=== PATIENT | female | born 1960 | race American Indian/Alaskan Native ===

== ENCOUNTER 2016-03-23 23:14 | Emergency (ER) | payer MEDICAID ==
[2016-03-24 01:27] LABS: Hematocrit 33.4 % (30.3-42.9); Hemoglobin 11.4 gm/dl (10.1-14.3); Mean Corpuscular HGB Conc 34 % (30-34); Mean Corpuscular Hemoglobin 31 pg (28-32); Mean Corpuscular Volume 91 fl (79-97); Platelet Count 227 K/mm3 (140-440); Red Blood Count 3.69 M/mm3 (3.65-5.03); Red Cell Distribution Width 13.6 % (13.2-15.2); White Blood Count 6.8 K/mm3 (4.5-11.0)
[2016-03-24 01:44] LABS: BUN/Creatinine Ratio 16.66; Blood Urea Nitrogen 10 mg/dL (7-17); Calcium 8.4 mg/dL (8.4-10.2); Carbon Dioxide 30 mmol/L (22-30); Chloride 97.3 mmol/L (98-107); Glucose 83 mg/dL (65-100); Potassium 3.6 mmol/L (3.6-5.0); Sodium 137 mmol/L (137-145)
[2016-03-24 01:45] LABS: Anion Gap 13 mmol/L
[2016-03-24 03:39] LABS: Basophils % (Manual) 0 % (0.0-1.8); Blastocytes % (Manual) 0 %
[2016-03-24 03:40] LABS: Anisocytosis 1+; Diff Status Complete
[2016-03-24] MEDS ORDERED: TYLENOL PO ONE (06:25)
--- NOTE | 2016-03-24 11:15 | Emergency Department Report ---
HPI - General Chief Complaint: Syncope Time Seen by Provider: 03/24/16 11:03 - HPI HPI: Chief complaint: Recurrent syncope and recurrent headache HPI: Patient is a 55-year-old female with a history of previous CVA, migraine headaches, HIV, seizure disorder, hypertension who presents today stating that she thinks she may be passing out at night. Patient states she takes her medicine at night and then sometime during the night when she is sitting on the side of the bed watching TV she thinks she might be passing out. Patient is unclear she's having a seizure but there is no incontinence or tongue biting. States she takes Tylenol for her headaches. It is her typical migraine headache for which she is had a workup in the past. Patient was here a year ago and had a CVA at that time and was transferred to [place] for her stroke. Patient states she is taking all of her medications as prescribed and has never had an age-related infection. Patient does not know her T cell count. Mode of arrival: EMS Source: Patient and old chart Began: Patient states she's been having these episodes nightly for a week. Duration: Unclear Context: See above Quality: Migraine Severity: 7 out of 10 Improved with: Improved in the ED after being given Tylenol Worsened with: Nothing Associated signs and symptoms: One episode of emesis this morning. No fever, cough, cold, chest pain, shortness breath or abdominal pain. ED Past Medical Hx - Past Medical History Hx Hypertension: Yes Hx CVA: Yes (2005) Hx Seizures: Yes - Social History Smoking Status: Never Smoker Substance Use Type: None - Medications Home Medications: Home Medications Medication Instructions Recorded Confirmed Last Taken Type ALBUTEROL Inhaler [Proair] 2 puff IH QID PRN 03/14/15 03/24/16 03/14/15 History Acyclovir [Zovirax Cap] 200 mg PO Q4H 03/14/15 03/24/16 03/13/15 History Aspirin [Aspirin BABY CHEW TAB] 81 mg PO QDAY 03/14/15 03/24/16 03/14/15 History Hydrochlorothiazide [HCTZ] 25 mg PO QDAY 03/14/15 03/24/16 03/13/15 History Ibuprofen [Motrin] 800 mg PO Q8HR PRN 03/14/15 03/24/16 03/14/15 History Phenytoin Sodium Extended 100 mg PO DAILY 03/14/15 03/24/16 03/13/15 History Quetiapine Fumarate [QUEtiapine 400 mg PO QHS 03/14/15 03/24/16 03/13/15 History Fumarate] amLODIPine [Norvasc] 10 mg PO DAILY 03/14/15 03/24/16 03/13/15 History ED Review of Systems ROS: Stated complaint: POSS SYNCOPE Other details as noted in HPI ROS Constitutional: No fever ENT: No uri symptoms Cardiovascular: No chest pain Respiratory: No sob or cough GI: No diarrhea : No dysuria frequency or urgency, Skin: No rash Neuro: No focal weakness or numbness Psych: No depression Bryan/lymph: No edema Physical Exam - Physical Exam Vital Signs: Vital Signs 03/24/16 03/24/16 03/24/16 00:43 06:22 06:37 Temperature 98.0 F 97.9 F Pulse Rate 67 64 Respiratory 18 18 20 Rate Blood Pressure 152/78 170/79 O2 Sat by Pulse 100 99 Oximetry 03/24/16 03/24/16 03/24/16 10:44 10:45 10:46 Temperature Pulse Rate 54 L 50 L Respiratory 22 22 24 Rate Blood Pressure 159/84 O2 Sat by Pulse 100 100 100 Oximetry Physical Exam: GENERAL: The patient is well-developed well-nourished . HEENT: Normocephalic. Atraumatic. Extraocular motions are intact. Patient has moist mucous membranes. NECK: Supple. No meningitic signs are noted. There is no adenopathy noted. CHEST/LUNGS: Clear to auscultation. There is no respiratory distress noted. HEART/CARDIOVASCULAR: Regular. There is no tachycardia. There is no gallop rub or murmur. ABDOMEN: Abdomen is soft, nontender. Patient has normal bowel sounds. There is no abdominal distention. SKIN: There is no rash. There is no edema. There is no diaphoresis. NEURO: The patient is awake, alert, and oriented. The patient is cooperative. The patient has no focal neurologic deficits. The patient has normal speech. MUSCULOSKELETAL: There is no tenderness or deformity. There is no limitation range of motion. There is no evidence of acute injury. ED Course Vital Signs 03/24/16 03/24/16 03/24/16 00:43 06:22 06:37 Temperature 98.0 F 97.9 F Pulse Rate 67 64 Respiratory 18 18 20 Rate Blood Pressure 152/78 170/79 O2 Sat by Pulse 100 99 Oximetry 03/24/16 03/24/16 03/24/16 10:44 10:45 10:46 Temperature Pulse Rate 54 L 50 L Respiratory 22 22 24 Rate Blood Pressure 159/84 O2 Sat by Pulse 100 100 100 Oximetry - Reevaluation(s) Reevaluation #1: 03/24/16 13:31 Daughter is here and states that patient has petit mal seizures. She states that her mother would call her after these episodes usually she never left the bed. Last night however she fell and that's when her daughter recommended she come to the hospital. Reevaluation #2: 03/24/16 13:46 Patient took her Dilantin this morning she takes 100 mg 3 times a day. As her level is slightly low give her 200 mg now and have her go back to her 100mg 3 times a day. ED Medical Decision Making - Lab Data Result diagrams: 03/24/16 01:16 03/24/16 01:16 Laboratory Tests 03/24/16 03/24/16 03/24/16 01:16 03:30 07:07 Troponin T < 0.010 < 0.010 < 0.010 Laboratory Tests 03/24/16 11:28 Phenytoin 4.6 L - EKG Data -: EKG Interpreted by Me EKG shows normal: sinus rhythm (first-degree AV block) Rate: normal (64) - EKG Data When compared to previous EKG there are: no significant change Interpretation: nonspecific ST-T wave michael - Radiology Data Radiology results: report reviewed (CT of the head shows no acute process.) Critical care attestation.: If time is entered above; I have spent that time in minutes in the direct care of this critically ill patient, excluding procedure time. ED Disposition Clinical Impression: Petit mal without grand mal seizures Disposition: DISCHARGED TO HOME OR SELFCARE Is pt being admited?: No Does the pt Need Aspirin: No Condition: Stable Instructions: Epilepsy (ED) Referrals: PRIMARY CARE, [Primary Care Provider] - 3-5 Days GUNJAN ARZATE MD [Staff Physician] - 3-5 Days (Dr. Arzate is a neurologist.) Time of Disposition: 13:39
[2016-03-24] MEDS ORDERED: NACL 0.9% 1000 ML IV ONE (11:19)
--- NOTE | 2016-03-24 12:01 | Cat Scan Report ---
CT scan of head with contrast: Compare to 03/14/15. History: Headache. Findings: Ventricles are normal in size and midline in location. Focal ill-defined area of low attenuation right parieto-occipital region. No interval change. No evidence of acute ischemia or hemorrhage. No extra-axial fluid collection. Normal brainstem and cerebellum. Normal sinuses and mastoid air cells. Impression: Focal area of low attenuation in the right parieto-occipital region probably chronic ischemia. Unchanged compared to previous study. No evidence of acute abnormality.
[2016-03-24] MEDS ORDERED: DILANTIN ONE (13:42)
[2016-03-24 14:11] VITALS: BP 167/86
[2016-03-24] MEDS ORDERED: DILANTIN PO ONE (14:57)
== END 2016-03-24 14:19 | disposition home or self-care (01) ==
LOC: ED 23:14
DX: G40.409 Other generalized epilepsy and epileptic syndromes, not intractable, without status epilepticus (principal); I10 Essential (primary) hypertension; G43.909 Migraine, unspecified, not intractable, without status migrainosus; Z86.73 Personal history of transient ischemic attack (TIA), and cerebral infarction without residual deficits
CPT/HCPCS: 36415; 70450; 80048; 80185; 84484; 85007; 85025; 93005; 93010; 96360; 96361; 99285; J7030

== ENCOUNTER 2017-12-01 16:54 | Emergency (ER) | payer MEDICAID ==
[2017-12-01] MEDS ORDERED: APRESOLINE PO ONE (17:28)
[2017-12-01 19:15] LABS: Basophils % (Auto) 0.3 % (0.0-1.8); Eosinophils # (Auto) 0.3 K/mm3 (0.0-0.4); Eosinophils % (Auto) 4.9 % (0.0-4.3); Hemoglobin 13.1 gm/dl (10.1-14.3); Lymphocytes # (Auto) 2.3 K/mm3 (1.2-5.4); Lymphocytes % (Auto) 42.6 % (13.4-35.0); Mean Corpuscular HGB Conc 34 % (30-34); Mean Corpuscular Hemoglobin 31 pg (28-32); Mean Corpuscular Volume 92 fl (79-97); Monocytes # (Auto) 0.4 K/mm3 (0.0-0.8); Monocytes % (Auto) 8.2 % (0.0-7.3); Platelet Count 223 K/mm3 (140-440); Red Blood Count 4.25 M/mm3 (3.65-5.03); Red Cell Distribution Width 14.6 % (13.2-15.2)
[2017-12-01] MEDS ORDERED: FIORICET PO ONE (20:52)
--- NOTE | 2017-12-01 21:17 | Emergency Department Report ---
HPI - General Chief Complaint: Fall Time Seen by Provider: 12/01/17 20:01 - HPI HPI: Room 19 The patient is a 57-year-old female presenting with a chief complaint of pain after fall. The patient states earlier today she was walking upstairs when she fell injuring her right leg and the right side of her face. Patient denies loss of consciousness. Patient gives her pain a score of 10/10 Location: [See above] Duration: Constant since earlier today Quality: Pain Severity: 10/10 Modifying factors: [see above] Context: [see above] Mode of transportation: [not driving] ED Past Medical Hx - Past Medical History Hx Hypertension: Yes Hx CVA: Yes (2005) Hx Seizures: Yes Hx HIV: Yes - Surgical History Past Surgical History?: No - Family History Family history: no significant - Social History Smoking Status: Never Smoker Substance Use Type: None (denies illicit drug use) - Medications Home Medications: Home Medications Medication Instructions Recorded Confirmed Last Taken Type ALBUTEROL Inhaler (OR & NICU) 2 puff IH QID PRN 03/14/15 03/24/16 03/14/15 History [Proair] Acyclovir [Zovirax Cap] 200 mg PO Q4H 03/14/15 03/24/16 03/13/15 History Aspirin [Aspirin BABY CHEW TAB] 81 mg PO QDAY 03/14/15 03/24/16 03/14/15 History Ibuprofen [Motrin] 800 mg PO Q8HR PRN 03/14/15 03/24/16 03/14/15 History Phenytoin Sodium Extended 100 mg PO DAILY 03/14/15 03/24/16 03/13/15 History Quetiapine Fumarate [QUEtiapine 400 mg PO QHS 03/14/15 03/24/16 03/13/15 History Fumarate] amLODIPine [Norvasc] 10 mg PO DAILY 03/14/15 03/24/16 03/13/15 History hydroCHLOROthiazide [HCTZ] 25 mg PO QDAY 03/14/15 03/24/16 03/13/15 History Cyclobenzaprine [Flexeril] 10 mg PO TID PRN #14 tablet 12/01/17 Unknown Rx Ibuprofen [Motrin 800 MG tab] 800 mg PO Q8HR PRN #20 tablet 12/01/17 Unknown Rx hydroCHLOROthiazide [HCTZ] 25 mg PO QDAY #90 tablet 12/01/17 Unknown Rx ED Review of Systems ROS: Stated complaint: FELL AT BANK Other details as noted in HPI Constitutional: no symptoms reported Eyes: denies: eye pain ENT: denies: throat pain Respiratory: no symptoms reported Cardiovascular: denies: chest pain Endocrine: no symptoms reported Gastrointestinal: denies: abdominal pain Genitourinary: denies: dysuria Musculoskeletal: back pain, arthralgia, myalgia Neurological: headache Physical Exam - Physical Exam Vital Signs: Vital Signs 12/01/17 12/01/17 12/01/17 17:10 17:34 19:54 Temperature 98.5 F 98.5 F Pulse Rate 84 84 67 Respiratory 16 16 Rate Blood Pressure 225/111 225/111 Blood Pressure 181/80 [Left] O2 Sat by Pulse 99 96 Oximetry 12/01/17 12/01/17 12/01/17 19:55 20:31 21:01 Temperature Pulse Rate 67 Respiratory 16 15 16 Rate Blood Pressure 157/79 Blood Pressure [Left] O2 Sat by Pulse 96 100 Oximetry Physical Exam: GENERAL: The patient is well-developed well-nourished female lying on stretcher not appearing to be in acute distress. [] HEENT: Normocephalic. Atraumatic. Extraocular motions are intact. Patient has moist mucous membranes. NECK: Supple. Mild tenderness to palpation to the posterior neck at the level of C7 CHEST/LUNGS: Clear to auscultation. There is no respiratory distress noted. HEART/CARDIOVASCULAR: Regular. There is no tachycardia. There is no gallop rub or murmur. ABDOMEN: Abdomen is soft, nontender. Patient has normal bowel sounds. There is no abdominal distention. SKIN: There is no rash. There is no edema. There is no diaphoresis. NEURO: The patient is awake, alert, and oriented. The patient is cooperative. The patient has normal speech MUSCULOSKELETAL: There is tenderness to palpation of the right femur, tib-fib and foot. There is no evidence of acute injury. ED Course Vital Signs 12/01/17 12/01/17 12/01/17 17:10 17:34 19:54 Temperature 98.5 F 98.5 F Pulse Rate 84 84 67 Respiratory 16 16 Rate Blood Pressure 225/111 225/111 Blood Pressure 181/80 [Left] O2 Sat by Pulse 99 96 Oximetry 12/01/17 12/01/17 12/01/17 19:55 20:31 21:01 Temperature Pulse Rate 67 Respiratory 16 15 16 Rate Blood Pressure 157/79 Blood Pressure [Left] O2 Sat by Pulse 96 100 Oximetry ED Medical Decision Making - Lab Data Result diagrams: 12/01/17 18:03 - Radiology Data Radiology results: report reviewed (CT head, CT cervical spine, right femur x- ray, right foot x-ray, right tib-fib x-ray, lumbar spine x-ray), image reviewed (CT head, CT cervical spine, right femur x-ray, right foot x-ray, right tib-fib x-ray, lumbar spine x-ray) interpreted by me: right femur x-ray-no acute fractures right foot x-ray-no acute fractures right tib-fib x-ray-no acute fractures lumbar spine x-ray-no acute fractures [address] [address] Cat Scan Report Signed Patient: BERTHA DIAZ MR#: [id number] : Acct:[id number] Age/Sex: 57 / F ADM Date: 12/01/17 Loc: ED Attending Dr: Ordering Physician: JV LEONG MD Date of Service: 12/01/17 Procedure(s): CT cervical spine wo con Accession Number(s): [id number] cc: JV LEONG MD FINAL REPORT EXAM: CT CERVICAL SPINE WO CON HISTORY: pain after fall TECHNIQUE: CT cervical spine without contrast Comparison: None FINDINGS: There is straightening of the normal lordotic curve of the cervical spine. The vertebral heights and disc spaces are maintained. Visualization detail the contents of the cervical canal is limited by artifact. There is no evidence of fracture or subluxation. The paraspinous soft tissues are unremarkable. IMPRESSION: 1. No evidence of fracture or subluxation of the cervical spine. Transcribed By: ED Dictated By: SOLOMON CARDOSO MD Electronically Authenticated By: SOLOMON CARDOSO MD Signed Date/Time: 12/01/172222 DD/ 22 TD/TT: 12/01/172222 [address] [address] Cat Scan Report Signed Patient: BERTHA DIAZ MR#: [id number] : Acct:[id number] Age/Sex: 57 / F ADM Date: 12/01/17 Loc: ED Attending Dr: Ordering Physician: JV LEONG MD Date of Service: 12/01/17 Procedure(s): CT head/brain wo con Accession Number(s): [id number] cc: JV LEONG MD FINAL REPORT EXAM: CT HEAD/BRAIN WO CON HISTORY: pain after fall TECHNIQUE: 2.5 millimeter axial images from the skullbase to the vertex. Comparison: Head CT dated March 14, 2015 FINDINGS: There is no evidence of an acute intracranial process, intracranial hemorrhage or mass effect. There is encephalomalacia, probable chronic cortical infarct, in the right parietal lobe similar in appearance to the previous study. Ventricular size is concordant with the degree of atrophy. The visualized portions of the orbits, paranasal and mastoid sinuses are unremarkable. There is no evidence of fracture. IMPRESSION: 1. No evidence of an acute intracranial process, intracranial hemorrhage or mass effect. No significant change since previous study dated March 14, 2015. 2. No evidence of fracture. Transcribed By: ED Dictated By: SOLOMON CARDOSO MD Electronically Authenticated By: SOLOMON CARDOSO MD Signed Date/Time: 12/01/172218 DD/ 18 TD/TT: 12/01/172218 - Differential Diagnosis closed head injury, ICH, fibular fracture, foot contusion Critical care attestation.: If time is entered above; I have spent that time in minutes in the direct care of this critically ill patient, excluding procedure time. ED Disposition Clinical Impression: Closed head injury, Contusion of right foot, Acute cervical myofascial strain, Contusion of right lower extremity Disposition: TO HOME OR SELFCARE Is pt being admited?: No Does the pt Need Aspirin: No Condition: Stable Instructions: Muscle Strain (ED) Additional Instructions: Return to the emergency department immediately should you develop worsening symptoms, fever, inability to tolerate food or liquid or any other concerns. Prescriptions: Cyclobenzaprine [Flexeril] 10 mg PO TID PRN #14 tablet PRN Reason: Muscle Spasm hydroCHLOROthiazide [HCTZ] 25 mg PO QDAY #90 tablet Ibuprofen [Motrin 800 MG tab] 800 mg PO Q8HR PRN #20 tablet PRN Reason: Pain, Moderate (4-6) Referrals: [facility] [Outside] - 3-5 Days SEAN ANTONIO MD [Staff Physician] - 3-5 Days (Dr. Antonio is an orthopedic surgeon. Please follow-up with him for further evaluation if your pain persists) JAMAL HILL MD [Staff Physician] - 3-5 Days (Dr. Hill is a primary physician. Please follow up with him to be established as a patient) Time of Disposition: 22:49
--- NOTE | 2017-12-01 22:20 | Cat Scan Report ---
FINAL REPORT EXAM: CT HEAD/BRAIN WO CON HISTORY: pain after fall TECHNIQUE: 2.5 millimeter axial images from the skullbase to the vertex. Comparison: Head CT dated March 14, 2015 FINDINGS: There is no evidence of an acute intracranial process, intracranial hemorrhage or mass effect. There is encephalomalacia, probable chronic cortical infarct, in the right parietal lobe similar in appearance to the previous study. Ventricular size is concordant with the degree of atrophy. The visualized portions of the orbits, paranasal and mastoid sinuses are unremarkable. There is no evidence of fracture. IMPRESSION: 1. No evidence of an acute intracranial process, intracranial hemorrhage or mass effect. No significant change since previous study dated March 14, 2015. 2. No evidence of fracture.
--- NOTE | 2017-12-01 22:25 | Cat Scan Report ---
FINAL REPORT EXAM: CT CERVICAL SPINE WO CON HISTORY: pain after fall TECHNIQUE: CT cervical spine without contrast Comparison: None FINDINGS: There is straightening of the normal lordotic curve of the cervical spine. The vertebral heights and disc spaces are maintained. Visualization detail the contents of the cervical canal is limited by artifact. There is no evidence of fracture or subluxation. The paraspinous soft tissues are unremarkable. IMPRESSION: 1. No evidence of fracture or subluxation of the cervical spine.
--- NOTE | 2017-12-01 22:46 | XRay Report ---
FINAL REPORT EXAM: XR SPINE LUMBOSACRAL 2-3V HISTORY: pain after fall TECHNIQUE: Frontal and lateral views lumbar spine and coned-down lateral view lumbosacral junction Comparison: None FINDINGS: Bony alignment is normal. The vertebral heights are maintained. There is loss of height of the L4-L5 and L5-S1 discs. There is degenerative facet change in the lower lumbar spine. There is no evidence of fracture or subluxation. The paraspinous soft tissues are unremarkable. IMPRESSION: 1. No plain film evidence of fracture or subluxation. However, lumbar spine fractures can be missed with plain film imaging. If there is a clinical concern for fracture, CT imaging would be helpful. 2. Spondylitic change lower lumbar spine with evidence of degenerative disc and degenerative facet change.
--- NOTE | 2017-12-01 22:48 | XRay Report ---
FINAL REPORT EXAM: XR FEMUR 2+V RT HISTORY: pain after fall TECHNIQUE: Frontal and lateral views right femur Comparison: None FINDINGS: There is no evidence of fracture or subluxation. The hip joint appears to be maintained. There is evidence of degenerative change of the tibiofemoral and patellofemoral joints. The soft tissues are unremarkable. IMPRESSION: 1. No evidence of fracture or subluxation. 2. Degenerative joint change of the tibiofemoral and patellofemoral joints.
[2017-12-01] MEDS ORDERED: CATAPRES PO ONE (22:50)
--- NOTE | 2017-12-01 22:51 | XRay Report ---
FINAL REPORT EXAM: XR FOOT 3+V RT HISTORY: pain after fall TECHNIQUE: Frontal, lateral, oblique views right foot Comparison: None FINDINGS: There is no evidence of fracture or subluxation. There is evidence of degenerative change of the great toe metatarsophalangeal joint with joint space loss. There are dorsal and plantar calcaneal spurs. The soft tissues are unremarkable. IMPRESSION: 1. No evidence of fracture or subluxation. 2. Degenerative change great toe metatarsophalangeal joint. 3. Dorsal and plantar calcaneal spurs.
--- NOTE | 2017-12-01 22:52 | XRay Report ---
FINAL REPORT EXAM: XR TIBIA FIBULA 2V RT HISTORY: pain after fall TECHNIQUE: Frontal and lateral views right tibia and fibula Comparison: X-ray right femur also performed today FINDINGS: There is no evidence of fracture or subluxation. There is evidence of degenerative change of the tibiofemoral and patellofemoral joints. The soft tissues are unremarkable. IMPRESSION: 1. No evidence of fracture or subluxation.
[2017-12-02 00:01] VITALS: BP 159/83
== END 2017-12-02 00:57 | disposition home or self-care (01) ==
LOC: ED 16:54
DX: S16.1XXA Strain of muscle, fascia and tendon at neck level, initial encounter (principal); S90.31XA Contusion of right foot, initial encounter; S70.11XA Contusion of right thigh, initial encounter; S09.90XA Unspecified injury of head, initial encounter; I10 Essential (primary) hypertension; Z21 Asymptomatic human immunodeficiency virus [HIV] infection status; W10.8XXA Fall (on) (from) other stairs and steps, initial encounter; Y93.89 Activity, other specified; Y92.89 Other specified places as the place of occurrence of the external cause; Y99.8 Other external cause status
CPT/HCPCS: 36415; 70450; 72100; 72125; 83880; 84484; 85025